=== PATIENT | female | born 2005 | race Hispanic/Latino ===

== ENCOUNTER 2024-12-05 11:07 | Emergency (ER) | payer BC, MEDICAID ==
[~2024-12-05] VITALS: Ht 162.6 cm; Wt 65.9 kg
--- NOTE | 2024-12-05 11:48 | ERN ---
General Chief Complaint: Abdominal Pain Stated Complaint: ABDOMINAL PAIN History of Present Illness Initial Comments Mario Alberto is a 27-year-old female with past medical history no calculi, came to ER due to complaints of abdominal pain since yesterday. Patient is complaining of intermittent epigastric pain with nausea and started having diarrhea this morning, nonradiating, no aggravating or relieving factors. She has history of flu last month and her LMP was a week ago. Allergies: Coded Allergies: No Known Drug Allergies (Unverified Allergy, Unknown, 12/05/24) Past Medical History Past Medical History: No Pertinent History Past Surgical History: None Female( History) LMP: Nov 27, 2024 ROS Dictation Constitutional: No appetite loss, No fevers, chills , No night sweats, No weakness, fatigue Eye: No vision change, No redness, pain or discharge ENT: No hearing loss, ear pain or discharge, No nose bleeds, No sore throat, Neck: No swelling. pain or stiffness Respiratory: No cough, shortness of breath, wheezing Cardiovascular: No chest pain,, palpitations, dyspnea, No edema Gastrointestinal: Epigastric pain with nausea and diarrhea, no constipation Genitourinary: No painful urination, No blood in urine, No urinary incontinence, No frequency or urgency Musculoskeletal: No joint pain, muscle pain, swelling or stiffness Neurological: No numbness, tingling, No weakness, tremors or seizures Physical Exam Physical Exam Dictation General: Alert & Oriented, No acute distress. EENT: No conjunctival redness or discharge noted Tympanic membranes are clear, Normal hearing, Oral mucosa is moist, No pharyngeal erythema, No nasal discharge, No oral lesions. Neck: Non-tender, No jugular vein distention, No lymphadenopathy, No thyromegaly, Supple. Respiratory: Lungs are clear to auscultation, Respirations are non-labored, Breath sounds are equal, No chest wall tenderness, _. Cardiovascular: Normal rate, Normal rhythm, No murmur, Good pulses equal in all extremities, Normal peripheral perfusion, No edema. Gastrointestinal: Soft, Non-tender, Non-distended, Normal bowel sounds, No organomegaly, _. Musculoskeletal: Normal range of motion, Normal strength, No tenderness, No swelling, No deformity, Normal gait. Integumentary: Warm, Dry, [place], Intact, No pallor, No rash. Neurologic: Alert, Oriented x4, Normal sensory, No focal defects Psychiatric: Cooperative, Appropriate mood & affect, Normal judgement, Non- suicidal. Results Laboratory and Microbiology Lab and Micro Result Laboratory Tests Test 12/05/24 12:45 12/05/24 13:49 Urine Color LIGHT-YELLOW (YELLOW) Urine Appearance CLEAR (CLEAR) Urine pH 6.5 (5.0-8.0) Urine Specific [place] 1.016 (1.001-1.031) Urine Protein NEGATIVE mg/dL (NEGATIVE) Urine Glucose (UA) NEGATIVE mg/dL (NEGATIVE) Urine Ketones 20 mg/dL (NEGATIVE) H Urine Occult Blood SMALL (NEGATIVE) H Urine Nitrate NEGATIVE (NEGATIVE) Urine Bilirubin NEGATIVE mg/dL (NEGATIVE) Urine Urobilinogen 0.2 mg/dL (0.2-1.0) Urine Leukocyte Esterase NEGATIVE Shannan/uL Urine RBC 0-1 /HPF (0-1) Urine WBC 2-5 /HPF (0-1) H Urine Squamous Epithelial Cells FEW /HPF (0-2) Urine Bacteria RARE /HPF (None Seen) Urine HCG, Qualitative NEGATIVE (NEGATIVE) White Blood Count 7.5 K/uL (4.8-10.8) Red Blood Count 4.44 MIL/uL (4.00-5.50) Hemoglobin 11.5 g/dL (12.0-16.0) L Hematocrit 37.1 % (36-48) Mean Corpuscular Volume 83.6 fL (80-100) Mean Corpuscular Hemoglobin 25.9 pg (27.0-33.0) L Mean Corpuscular Hemoglobin Concent 31.0 g/dL (32.0-36.0) L Red Cell Distribution Width 16.4 % (11.0-15.5) H Platelet Count 402 K/uL (130-400) H Mean Platelet Volume 9.6 fL (7.5-10.5) Immature Granulocyte % (Auto) 0.3 % (0-1) Neutrophils (%) (Auto) 59.1 % (40.0-77.0) Lymphocytes (%) (Auto) 30.8 % (21.0-51.0) Monocytes (%) (Auto) 7.1 % (3.0-13.0) Eosinophils (%) (Auto) 2.4 % (0.0-8.0) Basophils (%) (Auto) 0.3 % (0.0-5.0) Neutrophils # (Auto) 4.4 K/uL (1.8-7.7) Lymphocytes # (Auto) 2.3 K/uL (1.0-4.8) Monocytes # (Auto) 0.5 K/uL (0.1-1.0) Eosinophils # (Auto) 0.18 K/uL (0.00-0.70) Basophils # (Auto) 0.02 K/uL (0.00-0.20) Absolute Immature Granulocyte (auto 0.02 K/uL (0-1) Nucleated Red Blood Cells 0.0 % (0.0-0.19) Red Blood Cell Morphology See comments Sodium Level 137 mmol/L (136-145) Potassium Level 3.7 mmol/L (3.5-5.1) Chloride Level 101 mmol/L (101-111) Carbon Dioxide Level 26 mmol/L (21-32) Blood Urea Nitrogen 11 mg/dL (7-18) Creatinine 0.7 mg/dL (0.5-1.0) Glomerular Filtration Rate Calc 127 mL/min (>90) Random Glucose 78 mg/dL (70-105) Total Calcium 8.9 mg/dL (8.5-10.1) Total Bilirubin 0.5 mg/dL (0.2-1.0) Direct Bilirubin 0.1 mg/dL (0.0-0.3) Aspartate Amino Transf (AST/SGOT) 18 U/L (10-37) Alanine Aminotransferase (ALT/SGPT) 14 U/L (12-78) Alkaline Phosphatase 70 U/L (50-136) Total Protein 7.6 g/dL (6.0-8.3) Albumin 3.7 g/dL (3.5-5.0) Lipase 19 U/L (16-77) MDM The differential diagnosis entertained at this time includes: Acute gastritis, gallstones, renal stones, gastroenteritis A full comprehensive workup will be performed to identify the underlying problem. The patient will be monitored closely throughout the emergency department stay. The disposition will depend on the workup results and frequent re-evaluations MDM: Rationale: Tests considered and ordered secondary to shared decision making include: CBC, CMP, Urinalysis,, ECG and radiology Previous outside records reviewed: Old ER visits. Risk of complication and/or morbidity or mortality of patient management: None Medications-Per medication reconciliation Need for hospitalization: Patient does meet criteria for hospitalization. Need for emergency major/minor surgery: No There are no social concerns with this patient. Prescription drug management Prescriptions will include symptomatic care Patient's prior external medical records from other ER visits were reviewed by me as indicated. Prior testing and results from previous visits were reviewed. Prior tests were taken into account with medical decision making and resource utilization, independent historian/historians were used to obtain complete medic al history. I independently interpreted the test that were performed, results were reviewed by me and considered findings on radiology if ordered. Medical management and examination interpretation discussions were had by me with other qualified healthcare professionals as indicated for the patient's care. ED Course Orders Procedure Category Date Status Time ,Urine Test LAB 12/05/24 Complete 11:19 Urinalysis Profile LAB 12/05/24 Complete 11:19 Cbc With Differential LAB 12/05/24 Complete 11:41 Basic Metabolic Panel LAB 12/05/24 Complete 11:41 Hepatic Function Panel LAB 12/05/24 Complete 11:41 Lipase LAB 12/05/24 Complete 11:41 Acetaminophen 325 Tab PHA 12/05/24 Complete (Tylenol 325mg Tab 12:00 Ondansetron 4mg Inj PHA 12/05/24 Complete (Zofran 4mg Inj) 12:00 Pantoprazole 40mg Inj PHA 12/05/24 Complete (Protonix 40mg Inj 16:00 Mag/Alum/Simeth 30ml PHA 12/05/24 Complete (Maalox Plus 30ml) 16:00 Current Medications Medications (Trade) Dose Ordered Sig/Christopher Route PRN Reason Start Time Stop Time Status Last Admin Dose Admin Acetaminophen (TYLenol 325MG TAB) 650 mg ONCE ONCE PO 12/05/24 12:00 12/05/24 12:01 DC 12/05/24 15:07 Al Hydroxide/Mg Hydroxide (MAALox PLUS 30ML) 30 ml ONCE ONCE PO 12/05/24 16:00 12/05/24 16:01 DC 12/05/24 16:11 Ondansetron HCl (zoFRAN 4MG INJ) 4 mg ONCE ONCE IVP 12/05/24 12:00 12/05/24 12:01 DC 12/05/24 15:07 Pantoprazole Sodium (PROTonix 40MG INJ) 40 mg ONCE ONCE IVP 12/05/24 16:00 12/05/24 15:57 DC Vital Signs Date Time Temp Pulse Resp B/P (MAP) Pulse Ox O2 Delivery O2 Flow Rate FiO2 12/05/24 15:08 97.9 78 18 127/71 98 Room Air* 0 21 12/05/24 11:15 97.9 79 16 118/61 100 Room Air 0 DX & DISP Disposition: Discharge Departure Impression: Primary Impression: Acute gastritis Critical Time: 30 minutes Condition: Stable Scripts Ondansetron (Ondansetron Odt) 4 Mg Tab.rapdis 1 TAB PO Q6HPRN PRN for nausea/vomiting for 4 Days, #16 TAB 0 Refills Prov: PAMELA SETHI MD 12/05/24 Pantoprazole Sodium (Pantoprazole Sodium) 40 Mg Tablet.dr 1 TAB PO DAILY for 15 Days, #15 TAB 0 Refills Prov: PAMELA SETHI MD 12/05/24 Additional Instructions: Patient and the caregiver have been informed of all the diagnostic tests and the imaging conducted during the today's visit to the emergency room and has verbalized understanding of the results I have personally reviewed and interpreted all diagnostic exams performed here in the ER today as well as the vital signs documented by the nursing staff. The patient is now being discharged to home and should follow up with the primary care physician or the specialist as directed by the ER staff. Follow-up with primary care provider in 1 to 2 days. Take medications as directed here in the emergency room. Okay to continue home medications unless otherwise discussed during your visit in the emergency room today. Return to your nearest emergency room if symptoms worsen or if there is no improvement. Call 911 if you need immediate assistance. Take Tylenol or Motrin over-the- counter as needed and if no contraindications are present. Increase oral hydration. Referrals: ARGENTINA VANCE (PCP) ATTESTATION BY PHYSICIAN I have seen and examined the patient. I reviewed the documentation, medical decision making, and treatment plan as noted by the resident provider above. I agree with the findings and plan of care. Tanmay Ocampo MD, NIHITHA MD Dec 05, 2024 11:48
[2024-12-05 12:52] LABS: APPEARANCE,URINE CLEAR (CLEAR); BILIRUBIN,URINE NEGATIVE (NEGATIVE); COLOR,URINE LIGHT-YELLOW (YELLOW); GLUCOSE, URINE (UA) NEGATIVE (NEGATIVE); KETONES,URINE 20 mg/dL (NEGATIVE); LEUKOCYTE ESTERASE ,URINE NEGATIVE Leu/uL (NEGATIVE); NITRATE,URINE NEGATIVE (NEGATIVE); OCCULT BLOOD,URINE SMALL (NEGATIVE); PH,URINE 6.5 (5.0-8.0); PROTEIN,URINE NEGATIVE (NEGATIVE); UROBILINOGEN,URINE 0.2 mg/dL (0.2-1.0)
[2024-12-05 12:55] LABS: HCG,QUALITATIVE URINE NEGATIVE (NEGATIVE)
[2024-12-05 13:00] LABS: ADD UA MICROSCOPIC YES
[2024-12-05 13:06] LABS: BACTERIA,URINE RARE /HPF (None Seen); MUCUS,URINE RARE LPF (None Seen); RBC,URINE 0-1 /HPF (0-1); SQUAMOUS EPITHELIAL CELL,UR FEW /HPF (0-2)
[2024-12-05 14:34] LABS: BASOPHILS # (AUTO) 0.02 K/uL (0.00-0.20); BASOPHILS % (AUTO) 0.3 % (0.0-5.0); EOSINOPHILS # (AUTO) 0.18 K/uL (0.00-0.70); EOSINOPHILS % (AUTO) 2.4 % (0.0-8.0); HEMATOCRIT 37.1 % (36-48); IMMATURE GRANULOCYTE ABSOLUTE 0.02 K/uL (0-1); LYMPHOCYTES # (AUTO) 2.3 K/uL (1.0-4.8); LYMPHOCYTES % (AUTO) 30.8 % (21.0-51.0); MEAN CORPUSCULAR HEMOGLOBIN 25.9 pg (27.0-33.0); MEAN CORPUSCULAR VOLUME 83.6 fL (80-100); MONOCYTES # (AUTO) 0.5 K/uL (0.1-1.0); MONOCYTES % (AUTO) 7.1 % (3.0-13.0); NEUTROPHILS # (AUTO) 4.4 K/uL (1.8-7.7); NEUTROPHILS % (AUTO) 59.1 % (40.0-77.0); PLATELET COUNT (AUTO) 402 K/uL (130-400); RED BLOOD CELL COUNT(AUTO) 4.44 MIL/uL (4.00-5.50); RED CELL DISTRIBUTION WIDTH 16.4 % (11.0-15.5); WHITE BLOOD COUNT (AUTO) 7.5 K/uL (4.8-10.8)
[2024-12-05 14:49] LABS: CREATININE 0.7 mg/dL (0.5-1.0); POTASSIUM 3.7 mmol/L (3.5-5.1)
[2024-12-05 14:53] LABS: ALBUMIN 3.7 g/dL (3.5-5.0); BILIRUBIN,DIRECT 0.1 mg/dL (0.0-0.3); BILIRUBIN,TOTAL 0.5 mg/dL (0.2-1.0); TOTAL PROTEIN, SERUM 7.6 g/dL (6.0-8.3)
[2024-12-05] MEDS: ondanSETRON 4MG INJ IVP ONE (15:07)
[2024-12-05] MEDS: acetaMINOPHEN 325 MG TAB PO ONE (15:07)
[2024-12-05] MEDS ORDERED: PANTOPrazole 40 MG/VIAL IVP ONE (16:00)
[2024-12-05] MEDS: MAG/ALUM/SIMETH 30 ML UDCUP PO ONE (16:11)
[2024-12-05] MEDS ORDERED: ONDA-243 PO (16:18)
[2024-12-05] MEDS ORDERED: PANT40TA54 PO (16:18)
[2024-12-05 16:30] VITALS: BP 122/63; PULSE 78; RESP 18; TEMP 97.9; O2SAT 100
== END 2024-12-05 16:36 | disposition home or self-care (01) ==
LOC: EDH 11:07
DX: K29.00 Acute gastritis without bleeding (principal)
CPT/HCPCS: 99284; 96374; 80076; 80048; 83690; 85025; 81001; 81025; 36415; J2405

== ENCOUNTER 2025-04-23 04:09 | Emergency (ER) | payer BC ==
[~2025-04-23] VITALS: Ht 162.6 cm; Wt 68.0 kg
[~2025-04-23 04:09] MED LIST: ONDA-243 PO; PANT40TA54 PO
[2025-04-23 04:18] VITALS: BP 121/78; PULSE 105; RESP 16; TEMP 99
--- NOTE | 2025-04-23 05:33 | ERN ---
General Chief Complaint: Knee Injury/Swelling Stated Complaint: KNEE INJURY Time Seen by MD: 04:31 History of Present Illness Initial Comments 19-year-old female came in after fall which she suffered after tripping and landed on concrete. Patient states that she had blunt injury to her right knee suffering a small laceration. Patient denies hitting her head or loss of consciousness. Patient otherwise has no concerns. Allergies: Coded Allergies: No Known Drug Allergies (Unverified Allergy, Unknown, 12/05/24) Home Meds Active Scripts Ondansetron (Ondansetron Odt) 4 Mg Tab.rapdis, 1 TAB PO Q6HPRN PRN for nausea/vomiting for 4 Days, #16 TAB 0 Refills Prov:PAMELA SETHI MD 12/05/24 Pantoprazole Sodium (Pantoprazole Sodium) 40 Mg Tablet.dr, 1 TAB PO DAILY for 15 Days, #15 TAB 0 Refills Prov:PAMELA SETHI MD 12/05/24 Past Medical History Past Medical History: No Pertinent History Past Surgical History: None Female( History) LMP: Mar 11, 2025 ROS Dictation Fall Physical Exam Physical Exam Dictation This is a small laceration noted below right knee at tibial tuberosity measuring 3 cm with no active bleeding. There is full range of motion noted in shoulder elbows wrist hips knee and ankle without any tenderness on palpation pulses along with sensation intact in upper and lower extremities. General Appearance: (+) no apparent distress Ear, Nose, Throat: (+) hearing grossly normal Neck: (+) normal inspection, (+) supple Respiratory: (+) chest non-tender, (+) lungs clear Heart: (+) regular, (+) no gallop MDM Laceration is cleaned with normal saline laceration is repaired with multilayer format with two Vicryl sutures in the subcutaneous region and for Ethilon sutures on on the top there. Approximately 5 mL of lidocaine injected in subcutaneous region. Patient tolerated without any complications. ED Course Orders Procedure Category Date Status Time Knee 3vws Rt RAD 04/23/25 Taken 04:34 Vital Signs Date Time Temp Pulse Resp B/P (MAP) Pulse Ox O2 Delivery O2 Flow Rate FiO2 04/23/25 04:18 99.0 105 16 121/78 98 Room Air 0 DX & DISP Disposition: Discharge Departure Impression: Primary Impression: Knee laceration Condition: Stable Referrals: AGNIESZKA ZAMORANO MD (PCP) JOSIE HALL MD Apr 23, 2025 05:33
--- NOTE | 2025-04-23 07:37 | HMCIMG ---
KNEE 3VWS RT HISTORY: Knee injury COMPARISON: None TECHNIQUE: 3 images of right knee were FINDINGS: There is no acute displaced fracture or dislocation. IMPRESSION: 1. Findings as described above.
== END 2025-04-23 05:45 | disposition home or self-care (01) ==
LOC: EDH 04:09
DX: S81.011A Laceration without foreign body, right knee, initial encounter (principal); W01.0XXA Fall on same level from slipping, tripping and stumbling without subsequent striking against object, initial encounter; Y93.89 Activity, other specified; Y92.89 Other specified places as the place of occurrence of the external cause; Y99.8 Other external cause status; Z79.899 Other long term (current) drug therapy
CPT/HCPCS: 12002; 73562; 99283